=== PATIENT | female | born 1990 | race Caucasian/White ===

== ENCOUNTER → 2021-11-10 11:21 | Outpatient (CLI) | payer OTHER, SELFPAY ==
[2021-11-10 19:18] LABS: Add Manual Diff / Slide Review NO; Basophils Absolute Auto 0 /uL (0-100); Basophils Percent Auto 0.4 % (0-2); Eosinophils Absolute Auto 200 /uL (0-450); Eosinophils Percent Auto 3.7 % (2-4); Hematocrit 40.1 % (36-46); Hemoglobin 13.5 g/dL (12.0-16.0); Lymphocytes Absolute Auto 1300 /uL (1100-4500); Mean Corpuscular HGB Conc 33.6 % (30-36); Mean Corpuscular Hemoglobin 31.4 PG (26-34); Mean Corpuscular Volume 93.5 fL (80-100); Monocytes Absolute Auto 500 /uL (0-900); Monocytes Percent Auto 8.1 % (3-14); Neutrophils Absolute Auto 3700 /uL (1500-7000); Neutrophils Percent Auto 64.8 % (50-75); Platelet Count 251 X10^3/uL (150-400); Red Blood Cell Count 4.29 X10^6/uL (4.0-5.2); Red Cell Distribution Width 13.1 % (11.6-14.8); White Blood Cell Count 5.8 X10^3/uL (4.5-11.0)
[2021-11-10 19:31] LABS: Alanine Aminotransferase 26 IU/L (<35); Albumin 4.3 g/dL (3.5-5.0); Albumin Globulin Ratio 1.4 (1.0-2.8); Alkaline Phosphatase 69 U/L (38-126); Aspartate Aminotransferase 27 IU/L (14-36); BUN Creatinine Ratio 16.4 (6-22); Bilirubin Total 0.9 mg/dL (0.2-1.3); Blood Urea Nitrogen 10 mg/dL (7-17); Calcium 9.1 mg/dL (8.4-10.2); Carbon Dioxide 28 mmol/L (22-32); Chloride 104 mmol/L (98-107); Estimated Glomerular Filt Rate > 60.0 mL/min (>60); Globulin 3.1 g/dL (1.7-4.1); Glucose 96 mg/dL (70-100); HEMOLYSIS < 15 (0-50); Potassium 4.1 mmol/L (3.4-5.1); Sodium 140 mmol/L (137-145); Total Protein 7.4 g/dL (6.3-8.2)
== END ==
PROVIDERS: PCP Family Medicine; Visit Provider Physician Assistant
DX: F31.9 Bipolar disorder, unspecified (principal)
CPT/HCPCS: 80053; 85025

== ENCOUNTER → 2024-04-13 10:13 | Outpatient (CLI) | payer OTHER, MEDICAID, SELFPAY ==
[2024-04-13 20:28] LABS: Add Manual Diff / Slide Review NO; Basophils Absolute Auto 0 /uL (0-100); Basophils Percent Auto 0.2 % (0-2); Eosinophils Absolute Auto 200 /uL (0-450); Eosinophils Percent Auto 2.2 % (2-4); Hematocrit 42.8 % (36-46); Hemoglobin 14.6 g/dL (12.0-16.0); Lymphocytes Absolute Auto 2000 /uL (1100-4500); Lymphocytes Percent Auto 22.6 % (25-40); Mean Corpuscular HGB Conc 34.2 % (30-36); Mean Corpuscular Hemoglobin 32.4 PG (26-34); Mean Corpuscular Volume 94.8 fL (80-100); Monocytes Absolute Auto 500 /uL (0-900); Monocytes Percent Auto 5.9 % (3-14); Neutrophils Absolute Auto 6000 /uL (1500-7000); Neutrophils Percent Auto 69.1 % (50-75); Platelet Count 300 X10^3/uL (150-400); Red Blood Cell Count 4.51 X10^6/uL (4.0-5.2); Red Cell Distribution Width 12.9 % (11.6-14.8); White Blood Cell Count 8.6 X10^3/uL (4.5-11.0)
[2024-04-13 20:37] LABS: Alanine Aminotransferase 85 IU/L (<35); Albumin 4.1 g/dL (3.5-5.0); Albumin Globulin Ratio 1.2 (1.0-2.8); Alkaline Phosphatase 90 U/L (38-126); Aspartate Aminotransferase 53 IU/L (14-36); BUN Creatinine Ratio 11.8 (6-22); Bilirubin Total 0.8 mg/dL (0.2-1.3); Blood Urea Nitrogen 8 mg/dL (7-17); Calcium 9.4 mg/dL (8.4-10.2); Carbon Dioxide 28 mmol/L (22-32); Chloride 101 mmol/L (98-107); Cholesterol 258 mg/dL (140-199); Estimated Glomerular Filt Rate > 60 mL/min (>60); Globulin 3.4 g/dL (1.7-4.1); Glucose 101 mg/dL (70-100); HDL Cholesterol 51 mg/dL (40-60); HEMOLYSIS < 15 (0-50); LDL Cholesterol Calculated 175 mg/dL (<100); Potassium 4.2 mmol/L (3.4-5.1); Sodium 136 mmol/L (137-145); Total Protein 7.5 g/dL (6.3-8.2); Triglycerides 160 mg/dL (35-150)
[2024-04-13 21:08] LABS: TSH w/ Reflex to FT4 1.37 uIU/mL (0.47-4.68)
[2024-04-13 21:26] LABS: Hep C Virus Ab w/Reflex Quant NEGATIVE s/c (NEGATIVE)
== END ==
PROVIDERS: PCP Physician Assistant; Visit Provider Physician Assistant
DX: F32.A Depression, unspecified (principal); Z13.6 Encounter for screening for cardiovascular disorders; Z79.899 Other long term (current) drug therapy; R42 Dizziness and giddiness; L30.9 Dermatitis, unspecified; Z11.59 Encounter for screening for other viral diseases
CPT/HCPCS: 80053; 80061; 80175; 84443; 85025; 86803

== ENCOUNTER → 2024-04-21 10:21 | Outpatient (CLI) | payer OTHER, MEDICAID, SELFPAY ==
--- NOTE | 2024-04-21 10:23 | DI.US.S_ITS ---
LIMITED ULTRASOUND OF RIGHT BREAST AND AXILLA: 04/21/2024 CLINICAL: Patient returns today to evaluate a focal asymmetry in the right breast. Comparison is made to exam dated: 04/21/2024 mammogram - [facility]. Color flow ultrasound of the right breast 9-10 o'clock, 12 o'clock, and axilla regions was performed. Lea scale images of the real-time examination were reviewed. There is a 0.9 cm x 0.5 cm x 0.2 cm dilated duct in the right breast at 9 o'clock anterior depth 3 cm from the nipple. This dilated duct is of mixed echogenicity. This correlates as an incidental finding but was not seen on the prior mammogram. There also is a 0.7 cm x 0.8 cm x 0.3 cm irregular area of fibroglandular tissue in the right breast at 10 o'clock (9:30) middle depth 4 cm from the nipple. This irregular area of fibroglandular tissue is hypoechoic and isoechoic. This correlates as an incidental finding but was not seen on the prior mammogram. Additionally, there are multiple lymph nodes with eccentric cortical thickening in the right axilla. In addition, there is a benign 1 cm x 0.7 cm x 0.5 cm oval cyst in the right breast at 12 o'clock anterior depth 2 cm from the nipple. This oval cyst is anechoic. This correlates as an incidental finding. IMPRESSION: PROBABLY BENIGN There is no abnormality seen in the right breast to correspond with the palpable abnormality at 10 o'clock in the posterior depth, however, clinical followup is recommended. The 0.9 cm x 0.5 cm x 0.2 cm dilated duct in the right breast at 9 o'clock anterior depth is probably benign. The 0.7 cm x 0.8 cm x 0.3 cm irregular area of fibroglandular tissue in the right breast at 10 o'clock (9:30) middle depth is probably benign. The multiple lymph nodes with eccentric cortical thickening in the right axilla are probably benign. The 1 cm x 0.7 cm x 0.5 cm oval cyst in the right breast at 12 o'clock anterior depth is consistent with a simple cyst and is benign. A follow-up right ultrasound in 6 months is recommended to demonstrate stability. This exam was interpreted at Station ID: [id number]. Electronically Signed By: Will Holguin M.D. ar/:04/21/2024 21:44:35 letter sent: Followup Recommended ACR BI-RADS Category 3: Probably Benign [id number]
--- NOTE | 2024-04-21 10:23 | DI.US.S_ITS ---
PROCEDURE: US ABDOMEN LIMITED INDICATIONS: ELEVATED LIVER FUNCTION TESTS. FAMILIAR HYPERLIPIDEMIA. TECHNIQUE: Real-time scanning was performed of the abdominal and retroperitoneal organs, with image documentation. COMPARISON: None. FINDINGS: Liver: Increased liver echogenicity with posterior attenuation, most consistent with moderate to severe steatosis. Focal fat sparing along the gallbladder fossa. Gallbladder: No gallstones. No wall thickening. No pericholecystic edema. Negative sonographic Traore's sign. Biliary ducts: Intrahepatic bile ducts are non-dilated. Extrahepatic bile duct caliber measures 2 mm. Normal is 6-7 mm or less in diameter, or 10 mm or less post-cholecystectomy. Pancreas: Visualized portions of the pancreas are sonographically normal. Miscellaneous: No free abdominal fluid. IMPRESSION: Hepatic steatosis. In the absence of alcohol use or other confounding factors, elevated LFTs may indicate non-alcoholic steatohepatitis (FLORES). Dictated by: Bo Yusuf M.D. on 04/21/2024 at 12:13 Approved by: Bo Yusuf M.D. on 04/21/2024 at 12:14
--- NOTE | 2024-04-21 10:23 | DI.MG.S_ITS ---
BILATERAL DIGITAL DIAGNOSTIC MAMMOGRAM 3D/2D: 04/21/2024 CLINICAL: Right palpable breast lump x's 10 months. Baseline exam. Family History of breast cancer. No prior exams were available for comparison. There are scattered areas of fibroglandular density (category b / 25%-50% glandular tissue). No significant masses, calcifications, or other findings are seen in either breast. IMPRESSION: INCOMPLETE: NEED ADDITIONAL IMAGING EVALUATION There is no abnormality seen in the right breast to correspond with the palpable abnormality, however, ultrasound is recommended. Based on Tyrer-Cuzick model (a risk assessment model), the patient's lifetime risk is 21.1% and her 10 year risk is 1.1%. If a patient has an elevated risk, a more comprehensive evaluation should be considered and/or a referral to a genetic counselor. The [place] [employer], [place] [employer], and NCCN Guidelines advise the consideration of Breast MRI as an adjunct to screening mammography in patients whose Lifetime risk to develop breast cancer is 20% or higher. This exam was interpreted at Station ID: [id number]. NOTE: For mammograms, a report in lay terms will be sent to the patient. Approximately 15% of breast malignancies will not be visualized mammographically. In the management of a palpable breast mass, a negative mammogram must not discourage biopsy of a clinically suspicious lesion. Electronically Signed By: Will pruitt/anna:04/21/2024 21:36:02 ACR BI-RADS Category 0: Incomplete: Need Additional Imaging Evaluation [id number]
== END ==
LOC: US 10:22
PROVIDERS: PCP Physician Assistant; Referring Provider Physician Assistant; Visit Provider Physician Assistant
DX: R92.2 Inconclusive mammogram (principal); N63.10 Unspecified lump in the right breast, unspecified quadrant; N60.01 Solitary cyst of right breast; N60.41 Mammary duct ectasia of right breast; R59.0 Localized enlarged lymph nodes; N63.20 Unspecified lump in the left breast, unspecified quadrant; K76.0 Fatty (change of) liver, not elsewhere classified; R74.8 Abnormal levels of other serum enzymes; E78.5 Hyperlipidemia, unspecified; Z80.3 Family history of malignant neoplasm of breast
CPT/HCPCS: 76642; 76705; 77066; G0279

== ENCOUNTER → 2025-01-07 11:42 | Outpatient (CLI) | payer OTHER, SELFPAY ==
--- NOTE | 2025-01-07 11:46 | DI.US.S_ITS ---
US breast RT limited: 01/07/2025. BI-RADS: 3 CLINICAL: 34-year old female for right diagnostic breast ultrasound. Tyrer- Cuzick lifetime risk of 9.9%. PRIOR EXAMS 04/21/2024. ULTRASOUND TECHNIQUE Real-time duran scale and color doppler imaging of the area of clinical interest was performed with image documentation. ULTRASOUND FINDINGS Right: Outer at 9:00, 3 cm from nipple, measuring 0.8 x 0.5 x 0.3 cm: There is a dilated duct containing echogenic material. Doppler shows no vascularity. This finding was previously incidental and is stable since April 2024. Right: Axilla: There is an axillary lymph node. There is similar appearance of axillary lymph nodes with mild eccentric cortical thickening. Finding is stable since April 2024. Right: The previously described probably benign finding at 9:30 o'clock, 4 cm from the nipple is no longer visualized. IMPRESSION: Right (Duct): Outer at 9:00, 3 cm from nipple, measuring 0.8 x 0.5 x 0.3 cm * Probably Benign. Right (Lymph Node): Axilla * Probably Benign. RECOMMENDATIONS Right: Outer at 9:00, 3 cm from nipple * Six month followup with diagnostic ultrasound to demonstrate 1 year stability. Right: Axilla * Six month followup with diagnostic ultrasound to demonstrate 1 year stability. COMMENTS: Findings and recommendations were conveyed to the patient during today's evaluation. OVERALL ASSESSMENT CATEGORY BI-RADS-3: Probably Benign. ELECTRONICALLY SIGNED: Yasmeen Hickey M.D. on 01/07/2025 at 11:05:50 PM PT Interpreting Station ID: [id number]
== END ==
LOC: MAMMO 11:44
PROVIDERS: PCP Physician Assistant; Referring Provider Physician Assistant; Visit Provider Physician Assistant
DX: R92.8 Other abnormal and inconclusive findings on diagnostic imaging of breast (principal)
CPT/HCPCS: 76642

== ENCOUNTER → 2025-06-21 09:23 | Outpatient (CLI) | payer OTHER, SELFPAY ==
[2025-06-21 18:58] LABS: Add Manual Diff / Slide Review NO; Hematocrit 42.4 % (36-46); Hemoglobin 14.5 g/dL (12.0-16.0); Lymphocytes Absolute Auto 1700 /uL (1100-4500); Mean Corpuscular HGB Conc 34.2 % (30-36); Mean Corpuscular Hemoglobin 31.9 PG (26-34); Mean Corpuscular Volume 93.1 fL (80-100); Platelet Count 282 X10^3/uL (150-400)
[2025-06-21 19:16] LABS: Alanine Aminotransferase 34 IU/L (<35); Albumin 4.4 g/dL (3.5-5.0); Albumin Globulin Ratio 1.4 (1.0-2.8); Alkaline Phosphatase 72 U/L (38-126); Blood Urea Nitrogen 8 mg/dL (7-17); Calcium 9.6 mg/dL (8.4-10.2); Carbon Dioxide 26 mmol/L (22-32); Chloride 104 mmol/L (98-107); Cholesterol 226 mg/dL (140-199); Estimated Glomerular Filt Rate > 60 mL/min (>60); Globulin 3.2 g/dL (1.7-4.1); Glucose 89 mg/dL (70-99); HDL Cholesterol 41 mg/dL (40-60); HEMOLYSIS 23 (0-50); Potassium 4.0 mmol/L (3.4-5.1); Sodium 140 mmol/L (137-145); Total Protein 7.6 g/dL (6.3-8.2); Triglycerides 125 mg/dL (35-150)
[2025-06-21 19:45] LABS: TSH w/ Reflex to FT4 1.41 uIU/mL (0.47-4.68)
[2025-06-22 15:33] LABS: HIV 1 & 2 Ab/Ag 4th Gen Combo NEGATIVE (NEGATIVE)
== END ==
PROVIDERS: PCP Physician Assistant; Visit Provider Physician Assistant
DX: R74.8 Abnormal levels of other serum enzymes (principal); E78.2 Mixed hyperlipidemia; Z79.899 Other long term (current) drug therapy; F33.2 Major depressive disorder, recurrent severe without psychotic features; Z11.4 Encounter for screening for human immunodeficiency virus [HIV]
CPT/HCPCS: 80053; 80061; 80175; 84443; 85025; 87389

== ENCOUNTER → 2025-06-22 13:25 | Outpatient (CLI) | payer OTHER, SELFPAY ==
--- NOTE | 2025-06-22 13:32 | DI.US.S_ITS ---
MM diagnostic mammo BI, US breast RT limited: 06/22/2025 BI-RADS: 1 CLINICAL: 34-year old female for bilateral diagnostic mammogram and right diagnostic breast ultrasound. The patient presents for a follow-up. Tyrer-Cuzick lifetime risk of 16.1%. No personal or first-degree family history of breast cancer. Current reported family history of breast cancer: maternal grandmother. PRIOR EXAMS 01/07/2025, 04/21/2024. MAMMOGRAPHY TECHNIQUE: 2D and 3D (tomosynthesis) digital mammographic views obtained, with additional images as needed for full coverage. Current study was also evaluated with a Computer Aided Detection (CAD) system. ULTRASOUND TECHNIQUE Real-time duran scale imaging of the area of clinical interest was performed with image documentation. Right targeted breast ultrasound of the area of clinical interest and the axilla was performed with image documentation. DENSITY B. There are scattered areas of fibroglandular density. MAMMOGRAPHY FINDINGS Bilateral: No suspicious mass, asymmetry, microcalcification, or other abnormality seen. ULTRASOUND FINDINGS Right: Outer at 9:00, 3 cm from nipple: The previously seen dilated duct is no longer visualized. No suspicious sonographic finding present. Right: Axilla: No abnormal lymph nodes are seen in the axilla. IMPRESSION: * No evidence of malignancy. RECOMMENDATIONS Bilateral * Annual screening mammography beginning at age 40. COMMENTS: Findings and recommendations were conveyed to the patient during today's evaluation. OVERALL ASSESSMENT CATEGORY BI-RADS-1: Negative. The [employer] recommends annual screening mammography beginning at age 40 for women with average risk of breast cancer. ELECTRONICALLY SIGNED: Alejandra Mcelroy M.D. on 06/22/2025 at 03:00:14 PM PT Interpreting Station ID: [id number]
== END ==
LOC: MAMMO 13:29
PROVIDERS: PCP Physician Assistant; Referring Provider Physician Assistant; Visit Provider Physician Assistant
DX: R92.8 Other abnormal and inconclusive findings on diagnostic imaging of breast (principal); N63.10 Unspecified lump in the right breast, unspecified quadrant; N63.20 Unspecified lump in the left breast, unspecified quadrant; Z80.3 Family history of malignant neoplasm of breast
CPT/HCPCS: 76642; 77066; G0279